=== PATIENT | male | born 1970 | race Caucasian/White ===

== ENCOUNTER 2019-07-18 21:50 | Emergency (ER) | payer MEDICARE ==
--- NOTE | 2019-07-19 00:18 | CT ---
Head CT without contrast 07/18/2019: Comparison: None HISTORY: Fall TECHNIQUE: Axial CT imaging at 5 mm intervals from vertex through skull base without contrast FINDINGS: Imaged paranasal sinuses and mastoid air cells are well-aerated. No displaced calvarial fra cture. No intracranial hemorrhage, midline shift, or mass effect. IMPRESSION: No intracranial hemorrhage or displaced calvarial fracture
== END 2019-07-19 00:28 ==
LOC: ERS 21:50
DX: S09.90XA Unspecified injury of head, initial encounter (principal); F10.129 Alcohol abuse with intoxication, unspecified; I10 Essential (primary) hypertension; F17.290 Nicotine dependence, other tobacco product, uncomplicated; W01.198A Fall on same level from slipping, tripping and stumbling with subsequent striking against other object, initial encounter
CPT/HCPCS: 70450

== ENCOUNTER 2022-02-17 17:51 | Emergency (ER) | payer SELFPAY ==
[~2022-02-17 17:51] MED LIST: Iopamidol-370 76% 500 ML 1 ML ONE
[2022-02-17] MEDS ORDERED: CEFAZOLIN 1 GM VIAL ONE (17:59)
[2022-02-17] MEDS ORDERED: Boostrix 0.5 ML (Tdap) VIAL (>/=7 yrs of age) ONE (18:00)
[2022-02-17 18:12] LABS: #Eosinphils 0.1 thou/uL (0.0-0.7); #Lymphocytes 1.7 thou/uL (1.20-3.40); #Monocytes 0.5 thou/uL (0.11-0.59); #Neutrophils 1.9 thou/uL (1.40-6.50); %Basophils 0.7 % (0.0-1.0); %Eosinophils 1.7 % (0.0-10.0); %Lymphocytes 40.9 % (21.0-51.0); %Monocytes 12.2 % (0.0-10.0); %Neutrophils 44.5 % (42.0-75.0); Hemoglobin 13.9 g/dL (14.0-18.0); Mean Corpuscular Hemoglobin 35.2 pg (27.0-31.0); Mean Platelet Volume 6.9 fL (7.4-10.4); Platelet Count 182 thou/uL (130-400); RBC Distribution Width 16.1 % (11.5-14.5); Red Blood Cell (RBC) Count 3.96 mill/uL (4.70-6.10); White Blood Cell (WBC) Count 4.2 thou/uL (4.8-10.8)
[2022-02-17 18:32] LABS: MDiff Complete? YES; Macrocytosis MODERATE=16-30 cells (100X) (0-5/hpf); Platelet Morphology Comment Appears Adequate; Polychromasia SLIGHT = 2-3 cells (100X) (0-2/hpf); Target Cells SLIGHT = 2-5 cells (100X) (0-1/hpf)
[2022-02-17 18:33] LABS: PTT 28.8 sec (22.9-36.1); Prothrombin Time 12.9 sec (12.0-14.7)
[2022-02-17 18:43] LABS: ALT (SGPT) 48 U/L (8-55); AST (SGOT) 124 U/L (5-34); Albumin 3.7 g/dL (3.5-5.0); Alkaline Phosphatase 68 U/L (40-110); Anion Gap 19 mmol/L (10-20); BUN (Urea Nitrogen) 13 mg/dL (8.4-25.7); Bilirubin, Total 0.4 mg/dL (0.2-1.2); Calc. Creatinine Clearance 0 mL/min (70-130); Calcium 7.9 mg/dL (7.8-10.44); Carbon Dioxide 20 mmol/L (22-29); Chloride 106 mmol/L (98-107); Estimated GFR 95; Globulin 2.7 g/dL (2.4-3.5); Glucose 84 mg/dL (70-105); Protein, Total 6.4 g/dL (6.0-8.3); Sodium 141 mmol/L (136-145)
[2022-02-17 18:45] LABS: SARS-CoV-2 NAA Rapid Test Not Detected (NotDetected)
[2022-02-17] MEDS ORDERED: Acetaminophen 500 MG TAB ONE (19:50)
[2022-02-17 22:07] LABS: Lactic Acid 3.6 mmol/L (0.5-2.2)
== END 2022-02-17 22:31 | disposition home or self-care (01) ==
LOC: ERS 17:51
DX: S21.111A Laceration without foreign body of right front wall of thorax without penetration into thoracic cavity, initial encounter (principal); I10 Essential (primary) hypertension; W26.0XXA Contact with knife, initial encounter
CPT/HCPCS: 36415; 70450; 71045; 71260; 72125; 74177; 80307; 83605; 84484; 85610; 85730; 86850; 86900; 86901; 90471; 90715; 93005; 96365; G0390; J0690; Q9967; U0002

== ENCOUNTER 2022-03-01 17:45 | Emergency (ER) | payer SELFPAY ==
[2022-03-01 18:15] LABS: Hemoglobin 11.6 g/dL (14.0-18.0); Mean Corpuscular HGB CONC 33.1 g/dL (32.0-36.0); Mean Corpuscular Hemoglobin 36.1 pg (27.0-31.0); Mean Platelet Volume 7.2 fL (7.4-10.4); Platelet Count 242 thou/uL (130-400); RBC Distribution Width 16.4 % (11.5-14.5); Red Blood Cell (RBC) Count 3.21 mill/uL (4.70-6.10); White Blood Cell (WBC) Count 3.5 thou/uL (4.8-10.8)
[2022-03-01 18:30] LABS: Alcohol 231 mg/dL (Less than 10); Salicylate Less than 8.0 mg/dL (15.0-30.0)
[2022-03-01 18:31] LABS: ALT (SGPT) 91 U/L (8-55); AST (SGOT) 100 U/L (5-34); Albumin 3.7 g/dL (3.5-5.0); Alkaline Phosphatase 81 U/L (40-110); Anion Gap 16 mmol/L (10-20); BUN (Urea Nitrogen) 8 mg/dL (8.4-25.7); Bilirubin, Total 0.2 mg/dL (0.2-1.2); Calc. Creatinine Clearance 0 mL/min (70-130); Calcium 8.5 mg/dL (7.8-10.44); Carbon Dioxide 23 mmol/L (22-29); Chloride 107 mmol/L (98-107); Estimated GFR 100; Globulin 2.4 g/dL (2.4-3.5); Glucose 106 mg/dL (70-105); Potassium 4.3 mmol/L (3.5-5.1); Protein, Total 6.1 g/dL (6.0-8.3); Sodium 142 mmol/L (136-145)
[2022-03-01 18:33] LABS: Eosinophils 1 % (0-10); Lymphocytes 32 % (21-51); MDiff Complete? YES; Macrocytosis SLIGHT = 6-15 cells (100X) (0-5/hpf); Monocytes 15 % (0-10); Neutrophil 42 % (42-75); Platelet Morphology Comment Appears Adequate; Polychromasia SLIGHT = 2-3 cells (100X) (0-2/hpf); Reactive Lymphocytes 7 % (0-10); Stomatocytes SLIGHT = 2-5 cells (100X) (0-1/hpf)
[2022-03-01] MEDS ORDERED: Aspirin Chewable 81 MG TAB ONE (21:16)
[2022-03-02] MEDS ORDERED: Folic Acid 1 MG TAB ONE (08:53)
[2022-03-02] MEDS ORDERED: Famotidine 20 MG TAB ONE (08:53)
== END 2022-03-01 21:44 | disposition left against medical advice (07) ==
LOC: ERS 17:45
DX: S82.832A Other fracture of upper and lower end of left fibula, initial encounter for closed fracture (principal); F10.229 Alcohol dependence with intoxication, unspecified; I10 Essential (primary) hypertension; F17.210 Nicotine dependence, cigarettes, uncomplicated; X58.XXXA Exposure to other specified factors, initial encounter
CPT/HCPCS: 36415; 70450; 71045; 71046; 80053; 80307; 84484; 85025; 93005

== ENCOUNTER 2022-03-02 01:54 | Observation (INO) | payer SELFPAY ==
[2022-03-02 02:36] LABS: Hemoglobin 12.4 g/dL (14.0-18.0); Mean Corpuscular HGB CONC 33.6 g/dL (32.0-36.0); Mean Corpuscular Hemoglobin 36.3 pg (27.0-31.0); Mean Platelet Volume 6.9 fL (7.4-10.4); Platelet Count 281 thou/uL (130-400); RBC Distribution Width 16.4 % (11.5-14.5); Red Blood Cell (RBC) Count 3.43 mill/uL (4.70-6.10); White Blood Cell (WBC) Count 4.2 thou/uL (4.8-10.8)
[2022-03-02 02:43] LABS: ALT (SGPT) 88 U/L (8-55); AST (SGOT) 84 U/L (5-34); Albumin 3.8 g/dL (3.5-5.0); Alkaline Phosphatase 91 U/L (40-110); Anion Gap 18 mmol/L (10-20); BUN (Urea Nitrogen) 11 mg/dL (8.4-25.7); Bilirubin, Total 0.2 mg/dL (0.2-1.2); Calc. Creatinine Clearance 0 mL/min (70-130); Calcium 8.7 mg/dL (7.8-10.44); Carbon Dioxide 20 mmol/L (22-29); Chloride 109 mmol/L (98-107); Estimated GFR 87; Glucose 106 mg/dL (70-105); Potassium 3.6 mmol/L (3.5-5.1); Protein, Total 6.8 g/dL (6.0-8.3); Sodium 143 mmol/L (136-145)
[2022-03-02 03:14] LABS: Band 4 % (5-11); Eosinophils 2 % (0-10); Lymphocytes 29 % (21-51); MDiff Complete? YES; Monocytes 21 % (0-10); Neutrophil 43 % (42-75)
[2022-03-02] MEDS ORDERED: Lorazepam 2 MG/ML VIAL IM PRN (06:17)
[2022-03-02] MEDS ORDERED: Ondansetron ODT 4 MG TAB PO PRN (06:17)
[2022-03-02] MEDS ORDERED: Electrolyte Replacement Protocol 1 EACH FS SCH (06:30)
[2022-03-02 07:10] LABS: Bilirubin, Direct 0.1 mg/dL (0.1-0.3); Magnesium 1.9 mg/dL (1.6-2.6); Phosphorus 2.7 mg/dL (2.3-4.7)
[2022-03-02 07:11] LABS: Cardiac Risk 2.2 (Less than 4.5)
[2022-03-02 08:40] LABS: Hemoglobin A1c 4.4 % (4.0-6.0)
[2022-03-02] MEDS: Famotidine 20 MG TAB PO SCH ×2 (08:58→20:28)
[2022-03-02] MEDS: Thiamine HCl 200 MG/2 ML VIAL SLOW IVP SCH (08:58)
[2022-03-02] MEDS: Folic Acid 1 MG TAB PO SCH (08:58)
[2022-03-02 09:06] LABS: HIV (1/2) Antibody/Antigen Non-Reactive (NonReactive); HIV 1/2 INDEX 0.25 S/CO (<1.00); Hep C IgG Ab Non-Reactive (NonReactive); Hep C Index 0.08 S/CO (0-0.79)
[2022-03-02] MEDS: Multivit, Therapeutic 1 TAB PO SCH (10:30)
[2022-03-02 10:46] LABS: Amphetamine Not Detected (NotDetected); Barbiturates Screen Not Detected (NotDetected); Benzodiazepine Screen Detected (NotDetected); Cocaine Metabolite Screen Not Detected (NotDetected); Methadone Not Detected (NotDetected); Methamphetamine Not Detected (NotDetected); Opiate Screen Not Detected (NotDetected); Oxycodone Screen Not Detected (NotDetected); Phencyclidine (PCP) Not Detected (NotDetected); THC/Cannabinoid Screen Not Detected (NotDetected); Tricyclic Screen Not Detected (NotDetected)
[2022-03-02 10:58] LABS: Syphilis Antibody Nonreactive (Nonreactive); Syphilis Antibody Index 0.06 S/CO (<1.00 Non-Reactive)
[2022-03-02] MEDS ORDERED: Lactated Ringer's 1,000 ML IV SCH (12:45)
[2022-03-02] MEDS ORDERED: Lidocaine 5% Patch TD SCH (14:00)
[2022-03-02 16:11] VITALS: BMI 25.5
[2022-03-02] MEDS ORDERED: Morphine 2 MG/ML VIAL SLOW IVP SCH (18:45)
[2022-03-02] MEDS ORDERED: Acetaminophen 325 MG TAB PO PRN (20:46)
[2022-03-02] MEDS: HYDROcodone/Acetaminophen 5/325 mg Tablet PO PRN (21:01)
[2022-03-02] MEDS ORDERED: Cepastat Lozenges 1 LOZ PO PRN (23:08)
[2022-03-02] MEDS ORDERED: Melatonin 3 MG TAB PO PRN (23:10)
[2022-03-03] MEDS: HYDROcodone/Acetaminophen 5/325 mg Tablet PO PRN ×2 (01:01→08:03)
[2022-03-03] MEDS ORDERED: [UNRECOGNIZED DRUG - REMARK] TOP SCH (02:00)
[2022-03-03 04:36] LABS: #Eosinphils 0.1 thou/uL (0.0-0.7); #Lymphocytes 1.4 thou/uL (1.20-3.40); #Monocytes 0.5 thou/uL (0.11-0.59); #Neutrophils 2.8 thou/uL (1.40-6.50); %Basophils 0.8 % (0.0-1.0); %Eosinophils 2.3 % (0.0-10.0); %Lymphocytes 29.5 % (21.0-51.0); %Monocytes 10.1 % (0.0-10.0); %Neutrophils 57.2 % (42.0-75.0); Hemoglobin 11.4 g/dL (14.0-18.0); Mean Corpuscular HGB CONC 32.5 g/dL (32.0-36.0); Mean Corpuscular Hemoglobin 35.6 pg (27.0-31.0); Mean Platelet Volume 7.2 fL (7.4-10.4); Platelet Count 253 thou/uL (130-400); RBC Distribution Width 16.2 % (11.5-14.5); White Blood Cell (WBC) Count 4.8 thou/uL (4.8-10.8)
[2022-03-03 05:01] LABS: ALT (SGPT) 64 U/L (8-55); AST (SGOT) 47 U/L (5-34); Albumin 3.5 g/dL (3.5-5.0); Alkaline Phosphatase 75 U/L (40-110); Anion Gap 11 mmol/L (10-20); BUN (Urea Nitrogen) 9 mg/dL (8.4-25.7); Bilirubin, Total 0.7 mg/dL (0.2-1.2); Calc. Creatinine Clearance 139 mL/min (70-130); Calcium 8.1 mg/dL (7.8-10.44); Carbon Dioxide 25 mmol/L (22-29); Chloride 103 mmol/L (98-107); Estimated GFR 109; Globulin 2.5 g/dL (2.4-3.5); Glucose 81 mg/dL (70-105); Potassium 3.6 mmol/L (3.5-5.1); Sodium 135 mmol/L (136-145)
[2022-03-03 08:35] VITALS: BP 178/93; TEMP 98.2
[2022-03-03] MEDS ORDERED: FLU VACC QS2022-23(6MOS UP)/PF 60 MCG/0.5 ML SYRINGE IM ONE (09:00)
[2022-03-03] MEDS: Multivit, Therapeutic 1 TAB PO SCH (09:06)
[2022-03-03] MEDS: Folic Acid 1 MG TAB PO SCH (09:06)
[2022-03-03] MEDS: Famotidine 20 MG TAB PO SCH (09:08)
[2022-03-03] MEDS: Thiamine HCl 200 MG/2 ML VIAL SLOW IVP SCH (09:09)
[2022-03-05] MEDS ORDERED: Thiamine 100 MG TAB PO SCH (09:00)
== END 2022-03-03 10:15 | disposition left against medical advice (07) ==
LOC: ERS 01:54 → ERHOLD 06:03 → 2NO 15:31
PROVIDERS: ADMIT Family Medicine; ATTEND Family Medicine
DX: R07.89 Other chest pain (principal); R53.1 Weakness; R20.0 Anesthesia of skin; F10.10 Alcohol abuse, uncomplicated; S82.65XA Nondisplaced fracture of lateral malleolus of left fibula, initial encounter for closed fracture; D53.9 Nutritional anemia, unspecified; R74.01 Elevation of levels of liver transaminase levels; I10 Essential (primary) hypertension; F17.210 Nicotine dependence, cigarettes, uncomplicated; M84.411A Pathological fracture, right shoulder, initial encounter for fracture; F14.11 Cocaine abuse, in remission; Z53.29 Procedure and treatment not carried out because of patient's decision for other reasons; Z66 Do not resuscitate; Z86.73 Personal history of transient ischemic attack (TIA), and cerebral infarction without residual deficits; Z20.822 Contact with and (suspected) exposure to COVID-19; X58.XXXA Exposure to other specified factors, initial encounter; Y90.6 Blood alcohol level of 120-199 mg/100 ml
CPT/HCPCS: 36415; 70551; 71045; 78452; 80053; 80061; 80306; 80307; 82248; 83036; 83735; 84100; 84484; 85025; 86780; 86803; 87389; 93005; 96374; 96375; A9500; G0378; J2270; J3411; J7120; U0003; U0005

== ENCOUNTER 2022-03-05 06:39 | Emergency (ER) | payer SELFPAY ==
[2022-03-05 07:33] LABS: #Basophils 0.1 thou/uL (0.0-0.2); #Lymphocytes 1.8 thou/uL (1.20-3.40); #Monocytes 0.9 thou/uL (0.11-0.59); #Neutrophils 3.8 thou/uL (1.40-6.50); %Basophils 1.1 % (0.0-1.0); %Eosinophils 0.7 % (0.0-10.0); %Lymphocytes 27.5 % (21.0-51.0); %Monocytes 13.3 % (0.0-10.0); %Neutrophils 57.5 % (42.0-75.0); Hemoglobin 13.1 g/dL (14.0-18.0); Mean Corpuscular HGB CONC 34.4 g/dL (32.0-36.0); Mean Corpuscular Hemoglobin 36.9 pg (27.0-31.0); Mean Platelet Volume 6.8 fL (7.4-10.4); Platelet Count 277 thou/uL (130-400); RBC Distribution Width 15.9 % (11.5-14.5); Red Blood Cell (RBC) Count 3.55 mill/uL (4.70-6.10); White Blood Cell (WBC) Count 6.6 thou/uL (4.8-10.8)
[2022-03-05 07:53] LABS: ALT (SGPT) 74 U/L (8-55); AST (SGOT) 72 U/L (5-34); Albumin 4.2 g/dL (3.5-5.0); Alkaline Phosphatase 93 U/L (40-110); Anion Gap 15 mmol/L (10-20); BUN (Urea Nitrogen) 8 mg/dL (8.4-25.7); Bilirubin, Total 0.4 mg/dL (0.2-1.2); Calc. Creatinine Clearance 0 mL/min (70-130); Calcium 10.2 mg/dL (7.8-10.44); Carbon Dioxide 29 mmol/L (22-29); Chloride 103 mmol/L (98-107); Estimated GFR 88; Globulin 2.7 g/dL (2.4-3.5); Glucose 100 mg/dL (70-105); Potassium 3.7 mmol/L (3.5-5.1); Protein, Total 6.9 g/dL (6.0-8.3); Sodium 143 mmol/L (136-145)
[2022-03-05] MEDS ORDERED: Aspirin Chewable 81 MG TAB ONE (08:56)
[2022-03-05 10:30] LABS: Troponin I 0.012 ng/mL (< 0.028)
[2022-03-05] MEDS ORDERED: Nitroglycerin 2% Ointment 1 INCH/1 GM Packet ONE (12:22)
[2022-03-05] MEDS ORDERED: Lidocaine 4% Cream 5 GM TUBE w/ Tegaderm ONE (12:23)
[2022-03-05] MEDS ORDERED: Lidocaine 4% Cream 5 GM TUBE w/ Tegaderm TOP SCH (12:45)
[2022-03-05 14:09] LABS: Troponin I Less than 0.010 ng/mL (< 0.028)
[2022-03-05] MEDS ORDERED: Lidocaine Viscous Sol 2% 15 ml UD Cup ONE (14:15)
[2022-03-05] MEDS ORDERED: Mag-Al 1200 mg/1200 mg/30 ML UDCUP ONE (14:15)
[2022-03-05 14:54] LABS: Bilirubin Negative (Negative); Blood, Urine Negative (Negative); Clarity Clear (Clear); Glucose, Urine (Dipstick) Normal (Negative); Ketone, Urine Negative (Negative); Leukocyte Negative Leu/uL (Negative); Nitrite Negative (Negative); Protein, Urine (Dipstick) 10 mg/dL (Neg-Trace); Specific Gravity, Urine 1.015 (1.002-1.036); Urobilinogen Normal mg/dL (Less than 2)
== END 2022-03-05 15:33 | disposition home or self-care (01) ==
LOC: ERS 06:39
DX: R07.2 Precordial pain (principal); F10.129 Alcohol abuse with intoxication, unspecified; I10 Essential (primary) hypertension; F17.210 Nicotine dependence, cigarettes, uncomplicated
CPT/HCPCS: 36415; 71045; 80053; 81003; 84484; 85025; 93005

== ENCOUNTER 2022-03-06 03:29 | Emergency (ER) | payer SELFPAY | END 2022-03-06 07:42 | disposition home or self-care (01) | LOC: ERS 03:29 | DX: R07.89 Other chest pain (principal); I10 Essential (primary) hypertension; F17.210 Nicotine dependence, cigarettes, uncomplicated | CPT/HCPCS: 71045; 93005 ==

== ENCOUNTER 2022-03-07 05:24 | Emergency (ER) | payer SELFPAY | END 2022-03-07 16:20 | disposition home or self-care (01) | LOC: ERS 05:24 | DX: R07.9 Chest pain, unspecified (principal); F10.129 Alcohol abuse with intoxication, unspecified; I10 Essential (primary) hypertension; F17.210 Nicotine dependence, cigarettes, uncomplicated | CPT/HCPCS: 36415; 71045; 84484; 93005 ==

== ENCOUNTER 2022-03-07 22:25 | Emergency (ER) | payer SELFPAY | END 2022-03-08 01:49 | disposition home or self-care (01) | LOC: ERS 22:25 | DX: R07.89 Other chest pain (principal); I10 Essential (primary) hypertension; F17.210 Nicotine dependence, cigarettes, uncomplicated | CPT/HCPCS: 36415; 93005 ==

== ENCOUNTER 2022-03-08 14:10 | Emergency (ER) | payer SELFPAY ==
[2022-03-08] MEDS ORDERED: Ketorolac Tromethamine 30 MG/ML VIAL ONE (15:04)
[2022-03-08 15:17] LABS: #Basophils 0.1 thou/uL (0.0-0.2); #Eosinphils 0.1 thou/uL (0.0-0.7); #Lymphocytes 1.6 thou/uL (1.20-3.40); #Monocytes 0.8 thou/uL (0.11-0.59); #Neutrophils 4.2 thou/uL (1.40-6.50); %Basophils 0.8 % (0.0-1.0); %Eosinophils 1.5 % (0.0-10.0); %Lymphocytes 24.4 % (21.0-51.0); %Monocytes 11.2 % (0.0-10.0); %Neutrophils 62.1 % (42.0-75.0); Hemoglobin 11.5 g/dL (14.0-18.0); Mean Corpuscular HGB CONC 33.4 g/dL (32.0-36.0); Mean Corpuscular Hemoglobin 36.3 pg (27.0-31.0); Mean Platelet Volume 7.1 fL (7.4-10.4); Platelet Count 287 thou/uL (130-400); RBC Distribution Width 15.5 % (11.5-14.5); Red Blood Cell (RBC) Count 3.17 mill/uL (4.70-6.10); White Blood Cell (WBC) Count 6.7 thou/uL (4.8-10.8)
[2022-03-08 15:39] LABS: ALT (SGPT) 40 U/L (8-55); AST (SGOT) 48 U/L (5-34); Albumin 3.6 g/dL (3.5-5.0); Alkaline Phosphatase 70 U/L (40-110); Anion Gap 19 mmol/L (10-20); BUN (Urea Nitrogen) 9 mg/dL (8.4-25.7); Bilirubin, Total 0.4 mg/dL (0.2-1.2); Calc. Creatinine Clearance 0 mL/min (70-130); Calcium 8.6 mg/dL (7.8-10.44); Carbon Dioxide 22 mmol/L (22-29); Chloride 105 mmol/L (98-107); Estimated GFR 108; Globulin 2.7 g/dL (2.4-3.5); Glucose 88 mg/dL (70-105); Lipase 20 U/L (8-78); Potassium 3.6 mmol/L (3.5-5.1); Protein, Total 6.3 g/dL (6.0-8.3); Sodium 142 mmol/L (136-145)
[2022-03-08 15:40] LABS: Alcohol 228 mg/dL (Less than 10); CK (CPK) 120 U/L (30-200); Salicylate Less than 8.0 mg/dL (15.0-30.0)
[2022-03-08] MEDS ORDERED: Lidocaine 5% Patch TD SCH (18:00)
[2022-03-09] MEDS ORDERED: Transdermal Patch Removal TOP SCH (06:00)
== END 2022-03-08 17:58 ==
LOC: ERS 14:10
DX: M84.68XA Pathological fracture in other disease, other site, initial encounter for fracture (principal); I10 Essential (primary) hypertension; F17.210 Nicotine dependence, cigarettes, uncomplicated
CPT/HCPCS: 36415; 70450; 71275; 72125; 80053; 80307; 82550; 83690; 85025; 85379; 93005; 96374; J1885; Q9967

== ENCOUNTER 2022-03-15 01:46 | Emergency (ER) | payer SELFPAY | END 2022-03-15 04:48 | disposition home or self-care (01) | LOC: ERS 01:46 | DX: R20.2 Paresthesia of skin (principal); I10 Essential (primary) hypertension; F17.210 Nicotine dependence, cigarettes, uncomplicated | CPT/HCPCS: 99284 ==

== ENCOUNTER 2022-04-21 01:53 | Emergency (ER) | payer SELFPAY ==
[2022-04-21 02:49] LABS: Hemoglobin 13.8 g/dL (14.0-18.0); Mean Corpuscular HGB CONC 34.8 g/dL (32.0-36.0); Mean Corpuscular Hemoglobin 37.9 pg (27.0-31.0); Mean Platelet Volume 7.1 fL (7.4-10.4); Platelet Count 184 10x3/uL (130-400); RBC Distribution Width 15.7 % (11.5-14.5); Red Blood Cell (RBC) Count 3.64 mill/uL (4.70-6.10); White Blood Cell (WBC) Count 3.8 10x3/uL (4.8-10.8)
[2022-04-21 02:58] LABS: ALT (SGPT) 75 U/L (8-55); AST (SGOT) 139 U/L (5-34); Albumin 3.8 g/dL (3.5-5.0); Alkaline Phosphatase 79 U/L (40-110); Anion Gap 14 mmol/L (10-20); BUN (Urea Nitrogen) 9 mg/dL (8.4-25.7); Bilirubin, Total 0.3 mg/dL (0.2-1.2); Calc. Creatinine Clearance 0 mL/min (70-130); Calcium 8.2 mg/dL (7.8-10.44); Carbon Dioxide 23 mmol/L (22-29); Chloride 105 mmol/L (98-107); Estimated GFR 107; Globulin 2.7 g/dL (2.4-3.5); Glucose 100 mg/dL (70-105); Potassium 3.5 mmol/L (3.5-5.1); Protein, Total 6.5 g/dL (6.0-8.3); Sodium 138 mmol/L (136-145)
[2022-04-21 03:10] LABS: Anisocytosis SLIGHT = 6-15 cells (100X) (0-5/hpf); Band 1 % (5-11); Lymphocytes 41 % (21-51); MDiff Complete? YES; Macrocytosis MODERATE=16-30 cells (100X) (0-5/hpf); Monocytes 19 % (0-10); Neutrophil 38 % (42-75); Ovalocytes SLIGHT = 2-5 cells (100X) (0-1/hpf); Platelet Morphology Comment Appears Adequate; Reactive Lymphocytes 1 % (0-10); Target Cells SLIGHT = 2-5 cells (100X) (0-1/hpf)
== END 2022-04-21 06:21 | disposition home or self-care (01) ==
LOC: ERS 01:53
DX: R07.9 Chest pain, unspecified (principal); F10.129 Alcohol abuse with intoxication, unspecified; I10 Essential (primary) hypertension; F17.210 Nicotine dependence, cigarettes, uncomplicated
CPT/HCPCS: 36415; 71045; 80053; 83880; 84484; 85025; 93005

== ENCOUNTER 2022-04-22 04:40 | Inpatient (IN) | payer SELFPAY ==
[2022-04-22] MEDS ORDERED: Sucralfate 1 GM/10 ML UDCUP ONE (05:17)
[2022-04-22] MEDS ORDERED: Famotidine 20 MG TAB ONE (05:17)
[2022-04-22 05:55] LABS: ALT (SGPT) 101 U/L (8-55); AST (SGOT) 246 U/L (5-34); Albumin 3.8 g/dL (3.5-5.0); Alcohol 337 mg/dL (Less than 10); Alkaline Phosphatase 80 U/L (40-110); Anion Gap 16 mmol/L (10-20); BUN (Urea Nitrogen) 11 mg/dL (8.4-25.7); Bilirubin, Total 0.4 mg/dL (0.2-1.2); Calc. Creatinine Clearance 0 mL/min (70-130); Calcium 8.3 mg/dL (7.8-10.44); Carbon Dioxide 22 mmol/L (22-29); Chloride 106 mmol/L (98-107); Estimated GFR 110; Globulin 2.6 g/dL (2.4-3.5); Glucose 98 mg/dL (70-105); Lipase 59 U/L (8-78); Potassium 3.6 mmol/L (3.5-5.1); Protein, Total 6.4 g/dL (6.0-8.3); Sodium 140 mmol/L (136-145)
[2022-04-22 05:57] LABS: Hemoglobin 13.6 g/dL (14.0-18.0); Mean Corpuscular HGB CONC 34.3 g/dL (32.0-36.0); Mean Corpuscular Hemoglobin 37.3 pg (27.0-31.0); Mean Platelet Volume 7.3 fL (7.4-10.4); Platelet Count 186 10x3/uL (130-400); RBC Distribution Width 15.8 % (11.5-14.5); Red Blood Cell (RBC) Count 3.66 mill/uL (4.70-6.10)
[2022-04-22 06:53] LABS: Band 1 % (5-11); Eosinophils 5 % (0-10); Lymphocytes 50 % (21-51); MDiff Complete? YES; Monocytes 7 % (0-10); Neutrophil 37 % (42-75); Platelet Morphology Comment Appears Adequate; Polychromasia SLIGHT = 2-3 cells (100X) (0-2/hpf)
[2022-04-22 08:04] LABS: Troponin I Less than 0.010 ng/mL (< 0.028)
[2022-04-22 08:10] LABS: Acetaminophen Less than 10.0 mcg/mL (10.0-30.0); Alcohol 284 mg/dL (Less than 10); Salicylate Less than 8.0 mg/dL (15.0-30.0)
[2022-04-22 09:18] LABS: INR-International Normal Ratio 0.9; Prothrombin Time 12.6 sec (12.0-14.7)
[2022-04-22 09:19] LABS: PTT 27.2 sec (22.9-36.1)
[2022-04-22] MEDS ORDERED: WATER IVPB SCH ×2 (10:00→12:00)
[2022-04-22] MEDS ORDERED: DEXTROSE 5% IVPB SCH ×2 (10:00→12:00)
[2022-04-22] MEDS ORDERED: ACETYLCYSTEINE IVPB SCH ×2 (10:00→12:00)
[2022-04-22] MEDS ORDERED: Ibuprofen 200 MG TAB ONE (10:24)
[2022-04-22] MEDS ORDERED: Ondansetron ODT 4 MG TAB PO PRN (12:54)
[2022-04-22] MEDS ORDERED: Ondansetron PF 4 MG/2 ML Vial IVP PRN (12:54)
[2022-04-22] MEDS ORDERED: Lorazepam 1 MG TAB PO PRN (12:59)
[2022-04-22] MEDS ORDERED: Thiamine HCl 200 MG/2 ML VIAL SLOW IVP SCH (13:00)
[2022-04-22] MEDS ORDERED: Electrolyte Replacement Protocol 1 EACH FS SCH (13:00)
[2022-04-22] MEDS ORDERED: Sodium Chloride 0.9% 1,000 ML IV SCH (13:15)
[2022-04-22] MEDS ORDERED: Multivit, Therapeutic 1 TAB PO SCH (13:30)
[2022-04-22] MEDS ORDERED: Folic Acid 1 MG TAB PO SCH (13:30)
[2022-04-22] MEDS ORDERED: hydrALAZINE 20 MG/ML VIAL SLOW IVP PRN (13:39)
[2022-04-22] MEDS ORDERED: hydrALAZINE 20 MG/ML VIAL ONE (14:11)
[2022-04-22 14:29] LABS: Magnesium 1.9 mg/dL (1.6-2.6)
[2022-04-22 14:34] LABS: Troponin I Less than 0.010 ng/mL (< 0.028)
[2022-04-22] MEDS ORDERED: WATER IV SCH (16:00)
[2022-04-22] MEDS ORDERED: DEXTROSE 5% IV SCH (16:00)
[2022-04-22] MEDS ORDERED: ACETYLCYSTEINE IV SCH (16:00)
[2022-04-22 16:03] VITALS: BMI 24.3
[2022-04-22] MEDS: Lorazepam 1 MG TAB PO SCH ×2 (16:55→19:52)
[2022-04-22] MEDS: Ibuprofen 600 MG TAB PO PRN ×2 (16:57→23:15)
[2022-04-22] MEDS ORDERED: Amlodipine 5 MG TAB PO SCH (17:03)
[2022-04-22] MEDS: Famotidine 20 MG TAB PO SCH (19:52)
[2022-04-22] MEDS: Famotidine/PF 20 mg/2ml Vial SLOW IVP SCH (19:53)
[2022-04-23] MEDS ORDERED: Sodium Chloride 0.9% 1,000 ML IV SCH (01:00)
[2022-04-23] MEDS: Lorazepam 1 MG TAB PO SCH ×2 (01:13→05:35)
[2022-04-23 04:55] LABS: Prothrombin Time 13.9 sec (12.0-14.7)
[2022-04-23 05:21] LABS: ALT (SGPT) 81 U/L (8-55); AST (SGOT) 119 U/L (5-34); Albumin 3.5 g/dL (3.5-5.0); Alkaline Phosphatase 67 U/L (40-110); Anion Gap 15 mmol/L (10-20); BUN (Urea Nitrogen) 9 mg/dL (8.4-25.7); Bilirubin, Total 1.2 mg/dL (0.2-1.2); Calc. Creatinine Clearance 149 mL/min (70-130); Calcium 8.7 mg/dL (7.8-10.44); Carbon Dioxide 23 mmol/L (22-29); Chloride 102 mmol/L (98-107); Estimated GFR 112; Globulin 2.7 g/dL (2.4-3.5); Glucose 112 mg/dL (70-105); Protein, Total 6.2 g/dL (6.0-8.3); Sodium 137 mmol/L (136-145)
[2022-04-23 05:23] LABS: #Lymphocytes 1.2 thou/uL (1.20-3.40); #Monocytes 0.7 thou/uL (0.11-0.59); #Neutrophils 2.6 thou/uL (1.40-6.50); %Basophils 0.8 % (0.0-1.0); %Eosinophils 0.6 % (0.0-10.0); %Lymphocytes 26.7 % (21.0-51.0); %Monocytes 14.6 % (0.0-10.0); %Neutrophils 57.3 % (42.0-75.0); Hemoglobin 13.9 g/dL (14.0-18.0); Mean Corpuscular HGB CONC 35.2 g/dL (32.0-36.0); Mean Corpuscular Hemoglobin 38.4 pg (27.0-31.0); Mean Platelet Volume 7.4 fL (7.4-10.4); Platelet Count 170 10x3/uL (130-400); RBC Distribution Width 15.9 % (11.5-14.5); Red Blood Cell (RBC) Count 3.62 mill/uL (4.70-6.10); White Blood Cell (WBC) Count 4.5 10x3/uL (4.8-10.8)
[2022-04-23] MEDS ORDERED: Potassium Chloride 20 MEQ TAB PO SCH (06:00)
[2022-04-23 08:11] VITALS: BP 182/87; TEMP 99
[2022-04-23 08:39] LABS: Magnesium 1.5 mg/dL (1.6-2.6); Phosphorus 2.7 mg/dL (2.3-4.7)
[2022-04-23] MEDS ORDERED: Multivit, Therapeutic 1 TAB PO SCH (09:00)
[2022-04-23] MEDS ORDERED: Amlodipine 5 MG TAB PO SCH (09:00)
[2022-04-23] MEDS ORDERED: Folic Acid 1 MG TAB PO SCH (09:00)
[2022-04-23] MEDS ORDERED: Magnesium 2 GM/50 ML(in water) 2 GM in Premix Bag 1 BAG IVPB SCH (09:00)
[2022-04-23] MEDS: Famotidine/PF 20 mg/2ml Vial SLOW IVP SCH (10:12)
[2022-04-23] MEDS: Famotidine 20 MG TAB PO SCH (10:12)
[2022-04-23] MEDS ORDERED: Lorazepam 1 MG TAB PO PRN (12:59)
[2022-04-24] MEDS ORDERED: Lorazepam 1 MG TAB PO PRN (12:59)
[2022-04-24] MEDS ORDERED: Lorazepam 0.5 MG TAB PO SCH (13:00)
[2022-04-25] MEDS ORDERED: Thiamine 100 MG TAB PO SCH (09:00)
[2022-04-25] MEDS ORDERED: Lorazepam 0.5 MG TAB PO PRN (12:59)
== END 2022-04-23 10:09 | disposition left against medical advice (07) | DRG 894 ==
LOC: ERS 04:40 → ERHOLD 10:18 → 2SW 15:41
PROVIDERS: ADMIT Internal Medicine; ATTEND Nurse Practitioner Acute Care
DX: F10.129 Alcohol abuse with intoxication, unspecified (principal); F17.210 Nicotine dependence, cigarettes, uncomplicated; I10 Essential (primary) hypertension; D53.9 Nutritional anemia, unspecified; Z96.642 Presence of left artificial hip joint; K70.10 Alcoholic hepatitis without ascites; R07.9 Chest pain, unspecified; Z20.822 Contact with and (suspected) exposure to COVID-19; Z86.73 Personal history of transient ischemic attack (TIA), and cerebral infarction without residual deficits; Z98.890 Other specified postprocedural states; I25.2 Old myocardial infarction
CPT/HCPCS: 36415; 71045; 80053; 80307; 83690; 83735; 84100; 84443; 84484; 85025; 85610; 85730; 93005; J0132; J0360; J3411; J7050; J7070; U0003; U0005

== ENCOUNTER 2022-06-05 19:33 | Emergency (ER) | payer SELFPAY ==
[2022-06-05 20:16] LABS: #Basophils 0.1 thou/uL (0.0-0.2); #Eosinphils 0.3 thou/uL (0.0-0.7); #Lymphocytes 1.7 thou/uL (1.20-3.40); #Monocytes 0.8 thou/uL (0.11-0.59); #Neutrophils 6.3 thou/uL (1.40-6.50); %Basophils 0.7 % (0.0-1.0); %Eosinophils 3.4 % (0.0-10.0); %Lymphocytes 18.3 % (21.0-51.0); %Monocytes 8.3 % (0.0-10.0); %Neutrophils 69.3 % (42.0-75.0); Mean Corpuscular HGB CONC 34.2 g/dL (32.0-36.0); Mean Corpuscular Hemoglobin 36.3 pg (27.0-31.0); Mean Platelet Volume 7.3 fL (7.4-10.4); Platelet Count 293 10x3/uL (130-400); RBC Distribution Width 15.2 % (11.5-14.5); Red Blood Cell (RBC) Count 3.86 mill/uL (4.70-6.10); White Blood Cell (WBC) Count 9.1 10x3/uL (4.8-10.8)
[2022-06-05 20:37] LABS: ALT (SGPT) 65 U/L (8-55); AST (SGOT) 98 U/L (5-34); Acetaminophen Less than 10.0 mcg/mL (10.0-30.0); Albumin 3.9 g/dL (3.5-5.0); Alcohol 245 mg/dL (Less than 10); Alkaline Phosphatase 76 U/L (40-110); Anion Gap 15 mmol/L (10-20); BUN (Urea Nitrogen) 13 mg/dL (8.4-25.7); Bilirubin, Total 0.3 mg/dL (0.2-1.2); Calc. Creatinine Clearance 0 mL/min (70-130); Calcium 8.5 mg/dL (7.8-10.44); Carbon Dioxide 22 mmol/L (22-29); Chloride 108 mmol/L (98-107); Estimated GFR 105; Globulin 2.8 g/dL (2.4-3.5); Glucose 94 mg/dL (70-105); Potassium 4.2 mmol/L (3.5-5.1); Protein, Total 6.7 g/dL (6.0-8.3); Salicylate Less than 8.0 mg/dL (15.0-30.0); Sodium 141 mmol/L (136-145)
== END 2022-06-05 23:43 | disposition home or self-care (01) ==
LOC: ERS 19:33
DX: F10.129 Alcohol abuse with intoxication, unspecified (principal); I10 Essential (primary) hypertension; F17.210 Nicotine dependence, cigarettes, uncomplicated; Y90.8 Blood alcohol level of 240 mg/100 ml or more
CPT/HCPCS: 36415; 80053; 80307; 85025; 99284

== ENCOUNTER 2022-07-08 20:22 | Emergency (ER) | payer SELFPAY ==
[2022-07-08 21:00] LABS: #Basophils 0.1 thou/uL (0.0-0.2); #Eosinphils 0.1 thou/uL (0.0-0.7); #Lymphocytes 1.4 thou/uL (1.20-3.40); #Monocytes 0.6 thou/uL (0.11-0.59); #Neutrophils 2.8 thou/uL (1.40-6.50); %Basophils 1.4 % (0.0-1.0); %Eosinophils 2.9 % (0.0-10.0); %Lymphocytes 28.7 % (21.0-51.0); %Monocytes 11.3 % (0.0-10.0); %Neutrophils 55.7 % (42.0-75.0); Hemoglobin 12.3 g/dL (14.0-18.0); Mean Corpuscular HGB CONC 34.4 g/dL (32.0-36.0); Mean Corpuscular Hemoglobin 37.4 pg (27.0-31.0); Mean Platelet Volume 6.9 fL (7.4-10.4); Platelet Count 241 10x3/uL (130-400); RBC Distribution Width 14.4 % (11.5-14.5); Red Blood Cell (RBC) Count 3.29 mill/uL (4.70-6.10)
[2022-07-08 21:19] LABS: ALT (SGPT) 43 U/L (8-55); AST (SGOT) 63 U/L (5-34); Albumin 3.6 g/dL (3.5-5.0); Alkaline Phosphatase 63 U/L (40-110); Anion Gap 12 mmol/L (10-20); BUN (Urea Nitrogen) 9 mg/dL (8.4-25.7); Bilirubin, Total 0.3 mg/dL (0.2-1.2); CK (CPK) 172 U/L (30-200); Calc. Creatinine Clearance 0 mL/min (70-130); Calcium 8.4 mg/dL (7.8-10.44); Carbon Dioxide 31 mmol/L (22-29); Chloride 104 mmol/L (98-107); Estimated GFR 109; Globulin 2.5 g/dL (2.4-3.5); Glucose 105 mg/dL (70-105); Lipase 38 U/L (8-78); Potassium 2.9 mmol/L (3.5-5.1); Protein, Total 6.1 g/dL (6.0-8.3); Sodium 144 mmol/L (136-145)
[2022-07-08] MEDS ORDERED: Potassium Bicarbonate/Cit Ac 25 MEQ TAB ONE (21:52)
== END 2022-07-08 22:02 | disposition home or self-care (01) ==
LOC: ERS 20:22
DX: R07.9 Chest pain, unspecified (principal); F17.210 Nicotine dependence, cigarettes, uncomplicated
CPT/HCPCS: 36415; 71045; 80053; 82550; 83690; 84484; 85025; 93005

== ENCOUNTER 2022-07-13 05:37 | Emergency (ER) | payer SELFPAY | END 2022-07-13 08:03 | disposition left against medical advice (07) | LOC: ERS 05:37 | DX: Z53.29 Procedure and treatment not carried out because of patient's decision for other reasons (principal); I10 Essential (primary) hypertension; F17.210 Nicotine dependence, cigarettes, uncomplicated ==

== ENCOUNTER 2022-08-05 22:02 | Emergency (ER) | payer SELFPAY ==
[2022-08-05 23:07] LABS: Bilirubin Negative (Negative); Blood, Urine Negative (Negative); Clarity Clear (Clear); Glucose, Urine (Dipstick) Normal (Negative); Ketone, Urine Negative (Negative); Leukocyte Negative Leu/uL (Negative); Nitrite Negative (Negative); Protein, Urine (Dipstick) Negative (Neg-Trace); Specific Gravity, Urine 1.009 (1.002-1.036); Urobilinogen Normal mg/dL (Less than 2)
[2022-08-06] MEDS ORDERED: Aspirin Chewable 81 MG TAB ONE (02:01)
== END 2022-08-06 03:10 | disposition home or self-care (01) ==
LOC: ERS 22:02
DX: R07.9 Chest pain, unspecified (principal); I10 Essential (primary) hypertension; F17.210 Nicotine dependence, cigarettes, uncomplicated; Z79.899 Other long term (current) drug therapy
CPT/HCPCS: 36415; 71045; 81003; 83880; 84484; 93005

== ENCOUNTER 2023-03-15 21:39 | Emergency (ER) | payer SELFPAY ==
[2023-03-15 22:53] LABS: #Eosinphils 0.1 thou/uL (0.0-0.7); #Monocytes 0.7 thou/uL (0.11-0.59); #Neutrophils 2.2 thou/uL (1.40-6.50); %Basophils 0.9 % (0.0-1.0); %Eosinophils 1.4 % (0.0-10.0); %Lymphocytes 31.9 % (21.0-51.0); %Monocytes 15.2 % (0.0-10.0); %Neutrophils 50.1 % (42.0-75.0); Hematocrit 37.1 % (42.0-52.0); Hemoglobin 12.7 g/dL (14.0-18.0); Mean Corpuscular HGB CONC 34.2 g/dL (32.0-36.0); Mean Corpuscular Hemoglobin 34.8 pg (27.0-31.0); Mean Corpuscular Volume 101.6 fl (78.0-98.0); Mean Platelet Volume 9.1 fL (7.4-10.4); Platelet Count 148 10x3/uL (130-400); RBC Distribution Width 16.1 % (11.5-14.5); Red Blood Cell (RBC) Count 3.65 mill/uL (4.70-6.10); White Blood Cell (WBC) Count 4.4 10x3/uL (4.8-10.8)
[2023-03-15 23:08] LABS: ALT (SGPT) 24 U/L (8-55); AST (SGOT) 51 U/L (5-34); Albumin 4.2 g/dL (3.5-5.0); Alkaline Phosphatase 70 U/L (40-110); Anion Gap 20 mmol/L (10-20); BUN (Urea Nitrogen) 5 mg/dL (8.4-25.7); Bilirubin, Total 0.4 mg/dL (0.2-1.2); Calc. Creatinine Clearance 0 mL/min (70-130); Calcium 8.9 mg/dL (7.8-10.44); Carbon Dioxide 21 mmol/L (22-29); Chloride 102 mmol/L (98-107); Estimated GFR 109; Glucose 92 mg/dL (70-105); Potassium 3.2 mmol/L (3.5-5.1); Protein, Total 7.2 g/dL (6.0-8.3); Sodium 140 mmol/L (136-145)
[2023-03-15 23:12] LABS: Troponin I Less than 0.010 ng/mL (< 0.028)
[2023-03-16] MEDS ORDERED: Doxycycline 100 MG CAP ONE (01:09)
[2023-03-16] MEDS ORDERED: Potassium Chloride 20 MEQ TAB ONE (01:10)
== END 2023-03-16 01:27 | disposition home or self-care (01) ==
LOC: ERS 21:39
DX: J18.9 Pneumonia, unspecified organism (principal); E87.6 Hypokalemia; I10 Essential (primary) hypertension; F17.210 Nicotine dependence, cigarettes, uncomplicated
CPT/HCPCS: 36415; 71045; 80053; 83880; 84484; 85025; 93005